=== PATIENT | female | born 1935 | race Caucasian/White ===

== ENCOUNTER → 2024-01-22 14:28 | Outpatient (REF) | payer MEDICARE, OTHER, SELFPAY | LOC: RAD 14:28 | PROVIDERS: ATTENDING PHYSICIAN Surgery Vascular Surgery; FAMILY PHYSICIAN Internal Medicine | DX: R60.9 Edema, unspecified (principal); I86.8 Varicose veins of other specified sites; R07.9 Chest pain, unspecified | CPT/HCPCS: 93971 ==

== ENCOUNTER → 2024-06-17 11:29 | Outpatient (REF) | payer MEDICARE, OTHER, SELFPAY ==
[2024-06-17 13:33] LABS: % Basophils 0.6 % (0-2); % Eosinophils 1.9 % (0-6); % Immature Granulocytes 0.2 % (0-0.5); % Lymphocytes 26.2 % (20.5-51.1); % Neutrophils 62.1 % (42.2-75.2); Absolute Eosinophils 0.1 10^3/uL (0-0.7); Absolute Lymphocytes 1.4 10^3/uL (1.2-3.4); Absolute Monocytes 0.5 10^3/uL (0.1-0.6); Absolute Neutrophils 3.3 10^3/uL (1.4-6.5); Hematocrit 41.5 % (37.0-47.0); Hemoglobin 13.4 g/dL (12.0-16.0); Mean Corp Hgb Conc. 32.3 g/dL (33.0-37.0); Mean Corpuscular Hgb 31.5 pg (27.0-31.0); Mean Corpuscular Volume 97.4 fL (81.0-99.0); Mean Platelet Volume 10.1 fL (7.4-10.4); Nucleated Red Blood Cells % 0 %; Platelet Count 211 10^3/uL (130-400); Red Blood Cell Count 4.26 10^6/uL (4.20-5.40); Red Cell Dist. Width 13.2 % (11.5-14.5); White Blood Cell Count 5.4 10^3/uL (4.8-10.8)
[2024-06-17 14:18] LABS: ALT (SGPT) 17 U/L (0-35); AST (SGOT) 38 U/L (14-36); Albumin 4.5 g/dl (3.5-5.0); Alkaline Phosphatase 77 U/L (38-126); Blood Urea Nitrogen 29 mg/dl (7-17); Calcium 10.2 mg/dl (8.4-10.2); Carbon Dioxide 31 mmol/L (22-30); Chloride 103 mmol/L (98-107); Glucose 85 mg/dl (70-99); HDL Cholesterol 108 mg/dl; LDL Cholesterol, Calculated 132 mg/dl; Potassium 4.7 mmol/L (3.5-5.1); Sodium 143 mmol/L (135-145); Total Bilirubin 0.9 mg/dl (0.2-1.3); Total Cholesterol 258 mg/dl (50-199); Total Protein 7.3 g/dl (6.3-8.2); Triglyceride 90 mg/dl (10-149); Very Low Density Lipoprotein 18 mg/dl (0-30); eGFR > 60.00
[2024-06-17 14:54] LABS: TSH Reflex To Free T4 2.69 uIU/ml (0.47-4.68)
== END ==
LOC: REG 11:29
PROVIDERS: ATTENDING PHYSICIAN Internal Medicine
DX: I10 Essential (primary) hypertension (principal); E78.5 Hyperlipidemia, unspecified
CPT/HCPCS: 36415; 80053; 80061; 84443; 85025

== ENCOUNTER → 2024-07-01 11:08 | Outpatient (REF) | payer MEDICARE, OTHER, SELFPAY ==
[2024-07-01 16:00] LABS: AST (SGOT) 36 U/L (14-36)
== END ==
LOC: HWLAB 11:08
PROVIDERS: ATTENDING PHYSICIAN Internal Medicine
DX: R74.01 Elevation of levels of liver transaminase levels (principal)
CPT/HCPCS: 36415; 84450

== ENCOUNTER → 2024-07-09 09:49 | Outpatient (REF) | payer MEDICARE, OTHER, SELFPAY | LOC: RAD 09:49 | PROVIDERS: ATTENDING PHYSICIAN Registered Nurse; FAMILY PHYSICIAN Internal Medicine | DX: R60.0 Localized edema (principal) | CPT/HCPCS: 93971 ==

== ENCOUNTER → 2024-07-19 13:41 | Outpatient (REF) | payer MEDICARE, OTHER, SELFPAY | LOC: HWWDC 13:41 | PROVIDERS: ATTENDING PHYSICIAN Internal Medicine | DX: Z12.31 Encounter for screening mammogram for malignant neoplasm of breast (principal); M81.0 Age-related osteoporosis without current pathological fracture | CPT/HCPCS: 77063; 77067; 77080 ==

== ENCOUNTER → 2025-02-21 13:28 | Outpatient (REF) | payer MEDICARE, OTHER, SELFPAY | LOC: HWRAD 13:28 | PROVIDERS: ATTENDING PHYSICIAN Surgery Vascular Surgery; FAMILY PHYSICIAN Internal Medicine | DX: I86.8 Varicose veins of other specified sites (principal); R60.9 Edema, unspecified | CPT/HCPCS: 93971 ==

== ENCOUNTER → 2025-07-22 08:53 | Outpatient (REF) | payer MEDICARE, OTHER, SELFPAY | LOC: HWRCS 08:53 | PROVIDERS: ATTENDING PHYSICIAN Internal Medicine | DX: I34.0 Nonrheumatic mitral (valve) insufficiency (principal); M79.645 Pain in left finger(s); M25.512 Pain in left shoulder; M25.511 Pain in right shoulder | CPT/HCPCS: 73030; 73140; 93306 ==